=== PATIENT | female | born 1950 | race Caucasian/White ===

== ENCOUNTER → 2024-01-11 09:13 | Outpatient (REF) | payer MEDICARE, BC, SELFPAY ==
[2024-01-11 12:00] LABS: Ionized Calcium 1.47 mMOL/L (1.15-1.33)
[2024-01-11 12:34] LABS: ALT (SGPT) 17 U/L (0-35); AST (SGOT) 23 U/L (14-36); Albumin 4.2 g/dl (3.5-5.0); Alkaline Phosphatase 111 U/L (38-126); Blood Urea Nitrogen 12 mg/dl (7-17); Calcium 11.2 mg/dl (8.4-10.2); Carbon Dioxide 24 mmol/L (22-30); Chloride 105 mmol/L (98-107); Glucose 106 mg/dl (70-99); Magnesium 2.3 mg/dl (1.6-2.3); Potassium 4.7 mmol/L (3.5-5.1); Sodium 137 mmol/L (135-145); Total Bilirubin 0.6 mg/dl (0.2-1.3); Total Protein 6.8 g/dl (6.3-8.2); eGFR > 60.00
[2024-01-11 12:41] LABS: Free T4 0.95 ng/dl (0.78-2.19); Vitamin D, 25-OH*** 37.9 ng/mL (30-80)
[2024-01-12 11:18] LABS: Intact PTH 279.7 pg/ml (13.6-85.8)
== END ==
LOC: REG 09:13
PROVIDERS: ATTENDING PHYSICIAN Student in an Organized Health Care Education/Training Program; FAMILY PHYSICIAN Family Medicine
DX: E83.52 Hypercalcemia (principal); E21.3 Hyperparathyroidism, unspecified; Z86.39 Personal history of other endocrine, nutritional and metabolic disease; M85.80 Other specified disorders of bone density and structure, unspecified site
CPT/HCPCS: 36415; 80053; 82306; 82330; 83735; 83970; 84439

== ENCOUNTER → 2024-04-18 10:49 | Outpatient (REF) | payer MEDICARE, BC, SELFPAY ==
[2024-04-18 12:26] LABS: % Basophils 0.6 % (0-2); % Eosinophils 1.5 % (0-6); % Immature Granulocytes 0.4 % (0-0.5); % Lymphocytes 26.4 % (20.5-51.1); % Monocytes 8.5 % (1.7-9.3); % Neutrophils 62.6 % (42.2-75.2); Absolute Eosinophils 0.1 10^3/uL (0-0.7); Absolute Lymphocytes 1.9 10^3/uL (1.2-3.4); Absolute Monocytes 0.6 10^3/uL (0.1-0.6); Absolute Neutrophils 4.5 10^3/uL (1.4-6.5); Hematocrit 31.7 % (37.0-47.0); Hemoglobin 9.2 g/dL (12.0-16.0); Mean Corpuscular Hgb 23.4 pg (27.0-31.0); Mean Corpuscular Volume 80.5 fL (81.0-99.0); Mean Platelet Volume 8.8 fL (7.4-10.4); Nucleated Red Blood Cells % 0 %; Platelet Count 326 10^3/uL (130-400); Red Blood Cell Count 3.94 10^6/uL (4.20-5.40); Red Cell Dist. Width 16.3 % (11.5-14.5); White Blood Cell Count 7.2 10^3/uL (4.8-10.8)
[2024-04-18 12:40] LABS: Blood Urea Nitrogen 12 mg/dl (7-17); Calcium 11.2 mg/dl (8.4-10.2); Carbon Dioxide 23 mmol/L (22-30); Chloride 104 mmol/L (98-107); Glucose 108 mg/dl (70-99); Magnesium 2.3 mg/dl (1.6-2.3); Potassium 4.9 mmol/L (3.5-5.1); Sodium 139 mmol/L (135-145); eGFR > 60.00
[2024-04-18 13:03] LABS: TSH Reflex To Free T4 1.21 uIU/ml (0.47-4.68)
== END ==
LOC: HWLAB 10:49
PROVIDERS: ATTENDING PHYSICIAN Internal Medicine Cardiovascular Disease; FAMILY PHYSICIAN Family Medicine; REFERRING PHYSICIAN Internal Medicine Cardiovascular Disease
DX: R00.2 Palpitations (principal)
CPT/HCPCS: 36415; 80048; 83735; 84443; 85025

== ENCOUNTER → 2024-04-27 13:27 | Outpatient (REF) | payer MEDICARE, BC, SELFPAY | LOC: HWRAD 13:27 | PROVIDERS: ATTENDING PHYSICIAN Family Medicine | DX: M25.551 Pain in right hip (principal) | CPT/HCPCS: 73502 ==

== ENCOUNTER → 2024-05-09 13:01 | Outpatient (REF) | payer MEDICARE, BC, SELFPAY ==
[2024-05-09 16:39] LABS: Urine Albumin Negative (Neg - Trace); Urine Bilirubin Negative (Negative); Urine Character Clear (Clear); Urine Color Yellow; Urine Glucose Negative (Negative); Urine Ketone Negative (Negative); Urine Leukocyte 2+ (Negative); Urine Nitrite Negative (Negative); Urine Occult Blood Negative (Negative); Urine Specific Gravity 1.015 (<1.030); Urine Urobilinogen Negative (Neg - 1+); Urine pH 6.5 (5.0-9.0)
[2024-05-09 17:06] LABS: Urine Calcium Oxalate Crystals Present; Urine Squamous Cell 26-30 /LPF (Few)
[2024-05-09 17:07] LABS: Urine Bacteria Many (Negative); Urine Mucus Moderate; Urine Red Blood Cell 0-2 /HPF (0-2)
== END ==
LOC: HWLAB 13:01
PROVIDERS: ATTENDING PHYSICIAN Internal Medicine Gastroenterology; FAMILY PHYSICIAN Family Medicine
DX: D50.8 Other iron deficiency anemias (principal)
CPT/HCPCS: 81003; 81015

== ENCOUNTER → 2024-05-13 11:05 | Outpatient (REF) | payer MEDICARE, BC, SELFPAY | LOC: HWLAB 11:05 | PROVIDERS: ATTENDING PHYSICIAN Internal Medicine Gastroenterology; FAMILY PHYSICIAN Family Medicine | DX: D50.8 Other iron deficiency anemias (principal); N39.0 Urinary tract infection, site not specified | CPT/HCPCS: 87086 ==

== ENCOUNTER → 2024-06-10 10:55 | Outpatient (REF) | payer MEDICARE, BC, SELFPAY | LOC: HWRAD 10:55 | PROVIDERS: ATTENDING PHYSICIAN Student in an Organized Health Care Education/Training Program; FAMILY PHYSICIAN Family Medicine; REFERRING PHYSICIAN Internal Medicine Gastroenterology | DX: E21.3 Hyperparathyroidism, unspecified (principal); M85.80 Other specified disorders of bone density and structure, unspecified site; D50.8 Other iron deficiency anemias; E83.52 Hypercalcemia; Z86.39 Personal history of other endocrine, nutritional and metabolic disease; N39.0 Urinary tract infection, site not specified | CPT/HCPCS: 87077; 87086; 87147 ==

== ENCOUNTER → 2025-02-06 13:25 | Outpatient (REF) | payer MEDICARE, BC, SELFPAY ==
[2025-02-06 15:51] LABS: ALT (SGPT) 22 U/L (0-35); AST (SGOT) 24 U/L (14-36); Albumin 4.1 g/dl (3.5-5.0); Alkaline Phosphatase 96 U/L (38-126); Blood Urea Nitrogen 13 mg/dl (7-17); Calcium 11.5 mg/dl (8.4-10.2); Carbon Dioxide 28 mmol/L (22-30); Chloride 108 mmol/L (98-107); Glucose 106 mg/dl (70-99); Potassium 4.6 mmol/L (3.5-5.1); Sodium 140 mmol/L (135-145); Total Bilirubin 0.8 mg/dl (0.2-1.3); Total Protein 6.9 g/dl (6.3-8.2); eGFR > 60.00
[2025-02-06 16:07] LABS: Vitamin D, 25-OH*** 36.3 ng/mL (30-80)
[2025-02-07 10:46] LABS: Intact PTH 177.5 pg/ml (13.6-85.8)
== END ==
LOC: HWLAB 13:25
PROVIDERS: ATTENDING PHYSICIAN Internal Medicine Endocrinology, Diabetes & Metabolism; FAMILY PHYSICIAN Family Medicine
DX: E21.0 Primary hyperparathyroidism (principal); E55.9 Vitamin D deficiency, unspecified
CPT/HCPCS: 36415; 80053; 82306; 83970

== ENCOUNTER → 2025-03-20 12:25 | Outpatient (REF) | payer MEDICARE, BC, SELFPAY ==
[2025-03-20 16:24] LABS: Urine Character Clear (Clear)
[2025-03-20 16:59] LABS: Urine Red Blood Cell 0-2 /HPF (0-2); Urine Squamous Cell 21-25 /LPF (Few)
== END ==
LOC: HWLAB 12:25
PROVIDERS: ATTENDING PHYSICIAN Physician Assistant; FAMILY PHYSICIAN Family Medicine
DX: N39.0 Urinary tract infection, site not specified (principal)
CPT/HCPCS: 81003; 81015; 87086